=== PATIENT | male | born 1960 | race African-American/Black ===

== ENCOUNTER 2018-06-11 18:50 | Observation (INO) | payer MEDICARE, OTHER ==
[2018-06-11] MEDS: ONDANSETRON 4 MG INJ IV (18:54)
[2018-06-11] MEDS: morphine 4 MG/ML VIAL IV (18:54)
[2018-06-11] MEDS ORDERED: NITROGLYCERIN (SL) 0.4 MG TAB SL ×2 (19:00→20:30)
[2018-06-11 19:01] LABS: ADD MAN DIFF? NO
[2018-06-11 19:05] LABS: WHITE BLOOD COUNT 8.7 10^3/ul (4.8-10.8)
[2018-06-11 19:05] LABS: BASOPHIL # 0.1 10^3/ul (0.0-0.1); BASOPHILS % 0.8 % (0.0-2.0); EOSINOPHILS # 0.3 10^3/ul (0.0-0.5); EOSINOPHILS % 3.9 % (0.0-7.0); HEMATOCRIT 36.6 % (42.0-52.0); HEMOGLOBIN 12.5 g/dl (14.0-18.0); LYMPHOCYTES % 34.6 % (15.0-51.0); MEAN CORPUSCULAR HEMOGLOBIN 30.9 pg (29.0-33.0); MEAN CORPUSCULAR HGB CONC 34.2 g/dl (32.0-37.0); MEAN CORPUSCULAR VOLUME 90.6 fl (82.0-101.0); MEAN PLATELET VOLUME 9.7 fl (7.4-10.4); MONOCYTES % 11.6 % (0.0-11.0); NEUTROPHIL # 4.2 10^3/ul (1.6-7.5); NEUTROPHILS % 48.6 % (39.0-77.0); PLATELET COUNT 168 10^3/UL (140-415); RED BLOOD COUNT 4.04 10^6/ul (4.70-6.10); RED CELL DISTRIBUTION WIDTH 15.2 % (11.5-14.5)
[2018-06-11 19:23] LABS: ALANINE AMINOTRANSFERASE 45 IU/L (13-69); ALBUMIN/GLOBULIN RATIO 1.33; ALKALINE PHOSPHATASE 91 IU/L (42-121); ANION GAP 13 (8-16); ASPARTATE AMINO TRANSFERASE 62 IU/L (15-46); BILIRUBIN,INDIRECT 0.6 mg/dl (0-1.1); BILIRUBIN,TOTAL 0.6 mg/dl (0.2-1.3); BLOOD UREA NITROGEN 27 mg/dl (7-20); CARBON DIOXIDE 22 mmol/L (21-31); CHLORIDE 104 mmol/L (97-110); CREATININE 1.88 mg/dl (0.61-1.24); GLUCOSE 166 mg/dl (70-220); POTASSIUM 3.5 mmol/L (3.5-5.1); SODIUM 135 mmol/L (135-144)
[2018-06-11 19:35] LABS: B-TYPE NATRIURETIC PEPTIDE 48 PG/ML (0-125); TROPONIN-I < 0.010 ng/ml (0.000-0.120)
[2018-06-11 19:40] LABS: INR 1.23; PROTIME 15.7 Sec (11.9-14.9); PT RATIO 1.2
[2018-06-11] MEDS ORDERED: morphine 2 MG INJ IV (20:30)
[2018-06-11] MEDS ORDERED: DOCUSATE SODIUM 100 MG CAP PO (20:30)
[2018-06-11] MEDS ORDERED: ACETAMINOPHEN 325 MG TAB PO (20:30)
[2018-06-11] MEDS ORDERED: NACL 0.9% 3 ML SYG IV (20:30)
[2018-06-11] MEDS ORDERED: BISACODYL (EC) 5 MG TAB PO (20:30)
[2018-06-11] MEDS ORDERED: ONDANSETRON 4 MG INJ IV (20:30)
[2018-06-11] MEDS: METOPROLOL 25 MG TAB PO (21:00)
[2018-06-11] MEDS: ATORVASTATIN 80 MG TAB PO (21:00)
[2018-06-11] MEDS: GABAPENTIN 300 MG CAP PO (23:31)
[2018-06-12] MEDS: RIVAROXABAN 20 MG TABLET PO ×2 (00:56→18:05)
[2018-06-12 01:24] LABS: CREATINE KINASE 281 IU/L (23-200)
[2018-06-12 01:37] LABS: CK INDEX 0.3; CK-MB 0.83 ng/ml (0.0-2.4)
[2018-06-12 06:24] LABS: ADD MAN DIFF? NO
[2018-06-12 06:28] LABS: WHITE BLOOD COUNT 8.5 10^3/ul (4.8-10.8)
[2018-06-12 06:28] LABS: BASOPHIL # 0.1 10^3/ul (0.0-0.1); BASOPHILS % 0.7 % (0.0-2.0); EOSINOPHILS # 0.4 10^3/ul (0.0-0.5); EOSINOPHILS % 4.5 % (0.0-7.0); HEMOGLOBIN 11.8 g/dl (14.0-18.0); LYMPHOCYTES # 2.4 10^3/ul (0.8-2.9); LYMPHOCYTES % 28.6 % (15.0-51.0); MEAN CORPUSCULAR HEMOGLOBIN 30.7 pg (29.0-33.0); MEAN CORPUSCULAR HGB CONC 33.7 g/dl (32.0-37.0); MEAN CORPUSCULAR VOLUME 91.1 fl (82.0-101.0); MEAN PLATELET VOLUME 10.8 fl (7.4-10.4); MONOCYTE # 0.8 10^3/ul (0.3-0.9); MONOCYTES % 9.9 % (0.0-11.0); NEUTROPHIL # 4.8 10^3/ul (1.6-7.5); NEUTROPHILS % 55.9 % (39.0-77.0); PLATELET COUNT 147 10^3/UL (140-415); RED BLOOD COUNT 3.84 10^6/ul (4.70-6.10); RED CELL DISTRIBUTION WIDTH 15.4 % (11.5-14.5)
[2018-06-12 06:40] LABS: HEMOGLOBIN A1C 5.6 % (0-5.9)
[2018-06-12 06:52] LABS: CREATINE KINASE 232 IU/L (23-200)
[2018-06-12 06:55] LABS: CK INDEX 0.2; CK-MB 0.56 ng/ml (0.0-2.4)
[2018-06-12 06:59] LABS: ALANINE AMINOTRANSFERASE 48 IU/L (13-69); ALBUMIN 3.7 g/dl (3.3-4.9); ALBUMIN/GLOBULIN RATIO 1.32; ALKALINE PHOSPHATASE 78 IU/L (42-121); ANION GAP 12 (8-16); ASPARTATE AMINO TRANSFERASE 61 IU/L (15-46); BILIRUBIN,INDIRECT 0.6 mg/dl (0-1.1); BILIRUBIN,TOTAL 0.6 mg/dl (0.2-1.3); BLOOD UREA NITROGEN 25 mg/dl (7-20); CALCIUM 9.1 mg/dl (8.4-10.2); CARBON DIOXIDE 22 mmol/L (21-31); CHLORIDE 107 mmol/L (97-110); CREATININE 1.28 mg/dl (0.61-1.24); GLUCOSE 137 mg/dl (70-220); MAGNESIUM 2.1 mg/dl (1.7-2.5); POTASSIUM 3.6 mmol/L (3.5-5.1); SODIUM 137 mmol/L (135-144); TOTAL PROTEIN 6.5 g/dl (6.1-8.1)
[2018-06-12 07:05] LABS: TROPONIN-I < 0.010 ng/ml (0.000-0.120)
[2018-06-12 07:20] LABS: THYROID STIMULATING HORMONE 0.524 MIU/L (0.465-4.680)
[2018-06-12] MEDS: GABAPENTIN 300 MG CAP PO ×3 (08:57→20:31)
[2018-06-12] MEDS: FOLIC ACID 1 MG TAB PO (08:57)
[2018-06-12] MEDS: ASPIRIN 81 MG TAB PO (08:57)
[2018-06-12] MEDS: METOPROLOL 25 MG TAB PO ×2 (08:59→20:32)
[2018-06-12] MEDS ORDERED: BENAZEPRIL 20 MG TAB PO (09:00)
[2018-06-12] MEDS ORDERED: hydrALAzine 20 MG INJ IV (10:00)
[2018-06-12] MEDS: ATORVASTATIN 80 MG TAB PO (20:31)
[2018-06-13] MEDS: FOLIC ACID 1 MG TAB PO (08:54)
[2018-06-13] MEDS: GABAPENTIN 300 MG CAP PO ×2 (08:55→12:26)
[2018-06-13] MEDS: METOPROLOL 25 MG TAB PO (08:57)
[2018-06-13] MEDS: ASPIRIN 81 MG TAB PO (08:58)
[2018-06-13] MEDS ORDERED: morphine LIQ (10 MG/5 ML) CUP PO (14:30)
== END 2018-06-13 17:14 | disposition home or self-care (01) ==
LOC: E/R 18:50 → 6WM 20:11
DX: R07.89 Other chest pain (principal); N17.9 Acute kidney failure, unspecified; I12.9 Hypertensive chronic kidney disease with stage 1 through stage 4 chronic kidney disease, or unspecified chronic kidney disease; N18.9 Chronic kidney disease, unspecified; D51.0 Vitamin B12 deficiency anemia due to intrinsic factor deficiency; E78.5 Hyperlipidemia, unspecified; G62.9 Polyneuropathy, unspecified; Z95.0 Presence of cardiac pacemaker
CPT/HCPCS: 36415; 71045; 76775; 80053; 82550; 82553; 83036; 83735; 83880; 84443; 84484; 85025; 85610; 93005; 93306; 93880; 99285-25; G0378